=== PATIENT | female | born 1940 | race Caucasian/White ===

== ENCOUNTER 2017-05-11 13:44 | Emergency (ER) | payer MEDICARE, OTHER ==
--- NOTE | 2017-05-11 15:03 | ED Physician Documentation ---
Lower Extremity Injury - HISTORIAN Historian: patient, spouse - HPI Stated Complaint: Left Ankle Injury s/p Fall Chief Complaint: Fall Additional Information: pt fall going upstairs. w/lt ankle pain swelling-xray shows spiral fx distal fibula Onset: hours (1330) Where: home Severity: moderate Context: fall, twist Associated Symptoms:: swelling, snapping sensation, unable to bear weight Modifying Factors:: pain on movement - ROS CONST: no problems CVS/RESP: none GI/: denies: problems urinating, nausea, vomiting MS/SKIN/LYMPH: none. denies: neck pain, back pain (but had back surgery yesterday) NEURO: denies: headache, head injury, anxiety, depression - PAST HX Past History: other (spinal stenosis) Immunizations: UTD Allergies/Adverse Reactions: Allergies Allergy/AdvReac Type Severity Reaction Status Date / Time No Known Allergies Allergy Verified 05/11/17 13:54 Home Medications: Ambulatory Orders Medication Instructions Recorded Calcitonin,[place],Synthetic 200 unit IJ D 04/01/16 [Miacalcin] Levothyroxine Sodium [Synthroid] 25 mcg PO 07 04/01/16 Lisinopril [Prinivil] 20 mg PO QD 04/01/16 Meclizine HCl [Antivert] 25 mg PO D PRN 04/01/16 Naproxen [Naprosyn] 500 mg PO BID PRN 04/01/16 amLODIPine BESYLATE [Norvasc] 5 mg PO 0900 04/01/16 traMADol HCL [Ultram] 50 mg PO Q6H PRN 04/01/16 Diltiazem HCl [Diltiazem 24Hr ER] 180 mg PO DAILY 05/11/17 - SOCIAL HX Smoking History: quit greater than 1 year Alcohol Use: none Drug Use: none - FAMILY HX Family History: none - VITAL SIGNS Vital Signs: Vital Signs Temp Pulse Resp BP Pulse Ox 98.1 F 80 18 180/66 98 05/11/17 13:45 05/11/17 13:45 05/11/17 13:45 05/11/17 13:45 05/11/17 13:45 - REVIEWED ASSESSMENTS Nursing Assessment Reviewed: Yes Vitals Reviewed: Yes ED Results Lab/Radiology - Radiology Radiology Impressions: spiral fx lt ankle--concern re poss lytic lesion-rad says no - Orders Orders: ED Orders Category Date Time Status LEFT ANKLE [ANKLE 3 VIEWS OR MORE] [RAD] Stat Exams 05/11/17 Taken Lower Extremities Injury Phy - Physical Exam General Appearance: mild distress, moderate distress (lt ankle pain) Gait: limited by pain, unable to bear weight (lt foot) Neuro/Vascular/Tendon: no vascular compromise, motor nml, sensation nml. No: abnml color, abnml warmth Head/ENT: nml inspection. No: tenderness, swelling, ecchymosis Neck/Back: nml inspection, non-tender. No: tenderness, swelling Resp/CVS: chest non-tender, breath sounds nml, heart sounds nml, no resp. distress, lungs clear, reg. rate & rhythm Abdomen: non-tender Discharge Clincal Impression: lt fibula, 3 hr back surgery yest-orion no damage, multi falls Referrals: Brenda Mayorga PRN [Primary Care Provider] - 2 Days Comments: must f/u w/orthopedic surgeon Condition: Fair Disposition: 01 HOME, SELF-CARE Decision to Admit: NO Decision Time: 15:08 (\)
--- NOTE | 2017-05-11 15:22 | Diagnostic Imaging Report ---
SHIRLEY LOPES [facility] [id number] [facility] [address] [id number] Report Submission Date: May 11, 2017 2:12:04 PM MANAGER MANAGING Patient Study Name: IZABEL LIND Date: May 11, 2017 1:56:20 PM MANAGER MANAGING Modality Type: CR Gender: F Description: LOWER EXTREMITY : 36 Institution: [facility] Physician: SHIRLEY LOPES Examination: Plain film ankle History: Injury Findings: 3 views of the ankle demonstrates spiral fracture involving the distal fibula. Tibia and talar dome are intact. Lateral soft tissue swelling. Small joint effusion. Calcaneal spurs. Impression: Fibular fracture. Soft tissue swelling and joint effusion. Electronically signed on May 11, 2017 2:12:04 PM MANAGER MANAGING by: Maco HUNT
[2017-05-11 15:23] VITALS: BP 150/68
== END 2017-05-11 15:15 | disposition home or self-care (01) ==
LOC: ED 13:44
DX: M79.662 Pain in left lower leg (principal); W19.XXXA Unspecified fall, initial encounter; Y93.9 Activity, unspecified; Y99.9 Unspecified external cause status
CPT/HCPCS: 73610; L4360; 99283

== ENCOUNTER 2018-08-23 13:51 | Outpatient (CLI) | payer MEDICARE, OTHER | END 2018-08-23 13:55 | LOC: LAB 13:51 | PROVIDERS: ATTEND Nurse Practitioner Family | DX: R19.4 Change in bowel habit (principal) | CPT/HCPCS: 87045; 87046; 87177; 87209; 87338; 87427 ==